=== PATIENT | female | born 1965 | race African-American/Black ===

== ENCOUNTER 2017-12-26 13:16 | Emergency (ER) | payer SELFPAY ==
[2017-12-26 16:53] LABS: BASOPHILS 0.2 % (0-2); EOSINOPHILS 0.9 % (0-7); HEMOGLOBIN 13.1 g/dL (12-16); IMMATURE GRANULOCYTES 0.2 % (0-5); LYMPHOCYTES 42.3 % (15-50); MCH 31.9 pg (26.0-34.0); MCHC 33.6 g/dL (31.0-37.0); MCV 94.9 fL (80.0-100.0); MONOCYTES 8.4 % (2-11); PLATELET COUNT 92 10x3/uL (130-400); RBC 4.11 10x6/uL (4.00-5.40); RDW 12.7 % (11.5-14.5); WBC 4.7 10x3/uL (4.8-10.8)
[2017-12-26 17:28] LABS: ALBUMIN 4.4 g/dL (3.4-5.0); BILIRUBIN - TOTAL 0.62 mg/dL (0.2-1.3); CALCIUM 9.2 mg/dL (8.5-10.1); CARBON DIOXIDE 28.3 mmol/L (21.0-32.0); CREATININE - SERUM 0.9 mg/dL (0.6-1.3); POTASSIUM - SERUM 3.3 mmol/L (3.5-5.1); PROTEIN - SERUM 8.5 g/dL (6.4-8.2)
[2017-12-26 19:14] LABS: PLATELET ESTIMATE DECREASED
== END 2017-12-26 18:11 | disposition home or self-care (01) ==
LOC: D.ER 13:16
PROVIDERS: Nurse Practitioner Family
DX: R07.89 Other chest pain (principal)

== ENCOUNTER 2018-05-19 13:55 | Emergency (ER) | payer SELFPAY ==
[~2018-05-19] VITALS: Ht 170.2 cm; Wt 62.7 kg
[2018-05-19 14:01] VITALS: Ht 170.2 cm; Wt 62.7 kg
[2018-05-19] MEDS ORDERED: PREDNISONE10 MG PO (14:05)
[2018-05-19] MEDS ORDERED: DIVIGEL30 GM TP (14:07)
[2018-05-19] MEDS ORDERED: HYDROCODON-ACE1 EAC7 PO (14:07)
[2018-05-19 14:56] LABS: BASOPHILS 0.2 % (0-2); EOSINOPHILS 1.6 % (0-7); HEMATOCRIT 35.4 % (36.0-48.0); HEMOGLOBIN 11.9 g/dL (12-16); IMMATURE GRANULOCYTES 0.2 % (0-5); LYMPHOCYTES 22.7 % (15-50); MCH 31.4 pg (26.0-34.0); MCHC 33.6 g/dL (31.0-37.0); MCV 93.4 fL (80.0-100.0); MEAN PLATELET VOLUME 10.1 fL (7.4-10.4); MONOCYTES 8.4 % (2-11); NEUTROPHILS 66.9 % (40-80); RBC 3.79 10x6/uL (4.00-5.40); RDW 12.9 % (11.5-14.5); WBC 5.1 10x3/uL (4.8-10.8)
[2018-05-19 15:03] LABS: PLATELET COUNT 179 10x3/uL (130-400)
[2018-05-19 15:15] LABS: ALBUMIN 3.9 g/dL (3.4-5.0); ANION GAP 11.1 mmol/L (8-16); BILIRUBIN - TOTAL 0.39 mg/dL (0.2-1.3); CALCIUM 8.5 mg/dL (8.5-10.1); CARBON DIOXIDE 28.6 mmol/L (21.0-32.0); POTASSIUM - SERUM 3.7 mmol/L (3.5-5.1); PROTEIN - SERUM 7.9 g/dL (6.4-8.2)
[2018-05-19] MEDS ORDERED: PHENERGAN DM SYR5 ML PO (16:38)
[2018-05-19] MEDS ORDERED: VIBRAMYCIN 100100 MG PO (16:38)
[2018-05-19] MEDS ORDERED: PROAIR HFA8.5 GM INH (16:38)
[2018-05-19 17:09] VITALS: BP 105/63
== END 2018-05-19 17:07 | disposition home or self-care (01) ==
LOC: D.ER 13:55
PROVIDERS: Family Medicine
DX: J40 Bronchitis, not specified as acute or chronic (principal); F41.9 Anxiety disorder, unspecified; R05 Cough; K21.9 Gastro-esophageal reflux disease without esophagitis

== ENCOUNTER → 2021-02-25 | Emergency (ER) | payer SELFPAY ==
[~2021-02-25] VITALS: Ht 170.2 cm; Wt 63.2 kg
[~2021-02-25] MED LIST: DIVIGEL30 GM TP; HYDROCODON-ACE1 EAC7 PO; MEDROL DOSE PACK4 MG PO; OMEPRAZOLE40 MG PO; PHENERGAN DM SYR5 ML PO; PREDNISONE10 MG PO; PROAIR HFA8.5 GM INH; TEMAZEPAM30 MG PO; VIBRAMYCIN 100100 MG PO
[2021-02-25 14:05] VITALS: BP 123/82; Ht 170.2 cm; Wt 63.2 kg
[2021-02-25 15:32] LABS: BASOPHILS 0.2 % (0-2); EOSINOPHILS 1.4 % (0-7); HEMATOCRIT 38.1 % (36.0-48.0); HEMOGLOBIN 12.6 g/dL (12-16); IMMATURE GRANULOCYTES 0.2 % (0-5); LYMPHOCYTE ABS# 1.49 10x3/uL (1.18-3.74); LYMPHOCYTES 29.7 % (15-50); MCH 31.8 pg (26.0-34.0); MCHC 33.1 g/dL (31.0-37.0); MCV 96.2 fL (80.0-100.0); MEAN PLATELET VOLUME 11.3 fL (7.4-10.4); MONOCYTES 11.6 % (2-11); NEUTROPHIL ABS# 2.86 10x3/uL (1.56-6.13); NEUTROPHILS 56.9 % (40-80); PLATELET COUNT 186 10x3/uL (130-400); RBC 3.96 10x6/uL (4.00-5.40); RDW 12.7 % (11.5-14.5)
[2021-02-25 15:34] LABS: BILIRUBIN NEGATIVE (NEGATIVE); KETONE NEGATIVE (NEGATIVE); NITRITE NEGATIVE (NEGATIVE); UROBILINOGEN NORMAL mg/dL (< 2)
[2021-02-25 15:49] LABS: CALCIUM 8.9 mg/dL (8.5-10.1); CARBON DIOXIDE 26.8 mmol/L (21.0-32.0); CREATININE - SERUM 0.9 mg/dL (0.6-1.3); POTASSIUM - SERUM 3.8 mmol/L (3.5-5.1)
[2021-02-25 15:55] LABS: ALBUMIN 3.8 g/dL (3.4-5.0); BILIRUBIN - TOTAL 0.47 mg/dL (0.2-1.3); PROTEIN - SERUM 7.9 g/dL (6.4-8.2)
== END | disposition home or self-care (01) ==
LOC: D.ER 13:51
PROVIDERS: Emergency Medicine
DX: M32.9 Systemic lupus erythematosus, unspecified (principal); R06.02 Shortness of breath; R53.81 Other malaise; K21.9 Gastro-esophageal reflux disease without esophagitis; M54.9 Dorsalgia, unspecified